=== PATIENT | male | born 1940 | race African-American/Black ===

== ENCOUNTER 2017-03-31 07:27 | Emergency (ER) | payer OTHER ==
[2017-03-31 07:33] VITALS: TEMP 98.1; BMI 39.9
--- NOTE | 2017-03-31 07:59 | PDOC ---
History of Present Illness - General Chief Complaint: Pain, Acute Stated Complaint: RIGHT KNEE PAIN Time Seen by Provider: 03/31/17 07:54 - History of Present Illness Initial Comments: 03/31/17 08:32 76yo man with PMH of Afib (not on AC), HTN, Gout, and recent LGIB who was discharged yesterday and presents this AM due to acute onset of R knee pain. Patient reports pain similar to prior gout attacks (though usually occurs in ankle/toes), and pain is worse with movement. His colchicine was stopped during hospitalization and was not restarted. He has taken acetaminophen for the pain with minimal improvement. He reports his R knee was aspirated 3 to 4 years ago; can not recall the results, but denies it was infected. Denies fever, chills, abdominal pain, CP. No further episodes of melena or bloody stool. Allergies: NKA PCP: Dr. Pacheco 03/31/17 08:37 Past History - Past Medical History Allergies/Adverse Reactions: Allergies Allergy/AdvReac Type Severity Reaction Status Date / Time No Known Allergies Allergy Verified 03/31/17 07:33 Home Medications: Ambulatory Orders Amlodipine Besylate/Benazepril [Lotrel 10-20 mg Capsule] 1 cap PO DAILY Multivit-Min/FA/Lycopen/Lutein [Centrum Silver Men Tablet] 1 each PO DAILY 03/26 Omeprazole 40 mg PO DAILY 03/26/17 Acetaminophen [Tylenol .Regular Strength -] 650 mg PO Q4H PRN tablet 03/30/17 Tamsulosin HCl [Flomax -] 0.4 mg PO DAILY@0830 cap.er.24h 03/30/17 Cardiac Disorders: Yes (A-FIB) COPD: No HTN: Yes - Suicide/Smoking/Psychosocial Hx Smoking History: Never smoked Hx Alcohol Use: No Drug/Substance Use Hx: No Substance Use Type: None Review of Systems - Review of Systems Able to Perform ROS?: Yes All Other Systems: Reviewed and Negative *Physical Exam - Vital Signs Last Vital Signs Temp Pulse Resp BP Pulse Ox 98.1 F 72 18 132/61 100 03/31/17 07:30 03/31/17 07:30 03/31/17 07:30 03/31/17 07:30 03/31/17 07:30 - Physical Exam General Appearance: Yes: Nourished, Appropriately Dressed HEENT: positive: Normal ENT Inspection Neck: positive: Supple Respiratory/Chest: positive: Lungs Clear, Normal Breath Sounds Cardiovascular: positive: Regular Rhythm, Regular Rate, S1, S2 Gastrointestinal/Abdominal: positive: Soft, Protuberent. negative: Tenderness Musculoskeletal: positive: Other (R knee moderately warmer > L knee, R knee ROM intact) Extremity: negative: Pedal Edema Integumentary: positive: Normal Color Neurologic: positive: Fully Oriented, Alert, Normal Mood/Affect ED Treatment Course - LABORATORY CBC & Chemistry Diagram: 03/31/17 08:53 03/31/17 08:53 Medical Decision Making - Medical Decision Making 03/31/17 08:42 76yo man with h/o gout who presents with R knee pain, small suprapatellar effusion without erythema suggestive of a gout attack. Patient's colchicine was d/c during recent hospital stay (03/26-). Call placed to Dr. Adamson for clarification on why it was stopped. Will order CBC and CMP. Will give morphine for pain, and reassess. 03/31/17 10:53 CBC, BMP 03/31/17 08:53 03/31/17 08:53 Hepatic Panel Total Bilirubin 0.5 mg/dL (0.2-1.0) D 03/31/17 08:53 AST 10 U/L (15-37) L D 03/31/17 08:53 ALT 16 U/L (12-78) 03/31/17 08:53 Alkaline Phosphatase 72 U/L (45-117) 03/31/17 08:53 Albumin 3.6 g/dl (3.4-5.0) 03/31/17 08:[address] Adamson. No contraindication to restart colchicine. He does have mild leukocytosis, however physical exam is more consistent with gout attack than a septic joint. Will discharge the patient on colchicine with strict follow -up early next week. *DC/Admit/Observation/Transfer Diagnosis at time of Disposition: Gout attack - Referrals Referrals: Cristi Pacheco MD [Primary Care Provider] - - Patient Instructions Printed Discharge Instructions: DI for Gout Additional Instructions: You likely have a gout attack. Please see your primary care physician early next week. You can restart taking Colchicine 0.6mg daily. Take your first dose tomorrow. You can also take Tylenol for pain. Avoid NSAIDs, such as Advil, Ibuprofen, Motrin, and Naproxen. Please return to the Emergency Department if your knee continues to become swollen, you can't bend your knee, or have new, worsening, or concerning symptoms. - Post Discharge Activity
[2017-03-31] MEDS ORDERED: morphine CARPU-JECT 2 MG/1 ML DISP.SYRIN IVPUSH ONE (08:30)
--- NOTE | 2017-03-31 08:32 | PDOC ---
Attending Attestation - Resident Resident Name: Sweetie Roman - HPI HPI: 03/31/17 08:24 Pt presents to the Ed complaining of the acute onset of R knee pain that is similar to his previous episodes of gout. Patient had a recent admission for GI bleed, and during this admission all of his NSAIDs and his colchicine. Denies fevers or trauma. - Physicial Exam PE: 03/31/17 08:32 Agree with resident's exam. Patient is well appearing. R knee has small suprapatellar effusion, with no erythema. PAtient is able to actively flex to 90 degrees. Minimal pain with passive ROM. - Medical Decision Making 03/31/17 08:35 Pt presents to the ED complaining of R knee pain consistent with gout. No signs of septic arthritis. Unclear why colchicine was discontinued upon discharge. Will treat with morphine, discuss with PMD Dr. Adamson whether patient can have colchicine.
[2017-03-31] MEDS ORDERED: morphine SULFATE 4 MG/ML VIAL ONE (09:06)
[2017-03-31 09:22] LABS: BASOPHIL 0.5 % (0-2.0); EOSINOPHIL 0.5 % (0-4.5); MCH 28.4 pg (25.7-33.7); MCHC 33.5 g/dl (32.0-35.9); MEAN CELL VOLUME 84.7 fl (80-96); MEAN PLT VOLUME 8.9 fl (7.5-11.1); NEUTROPHILS 80.1 % (42.8-82.8); PLATELET COUNT 252 K/MM3 (134-434); RDW 14.9 % (11.9-15.9); WHITE BLOOD COUNT 13.8 K/mm3 (4.0-10.0)
[2017-03-31 09:41] LABS: ALBUMIN 3.6 g/dl (3.4-5.0); ALK PHOS 72 U/L (45-117); ANION GAP 6 (8-16); BILIRUBIN,TOTAL 0.5 mg/dL (0.2-1.0); CALCIUM 8.5 mg/dL (8.5-10.1); CO2 28 mmol/L (21-32); CREATININE 1.3 mg/dL (0.7-1.3); GLUCOSE,RANDOM 119 mg/dL (74-106); SGOT/AST 10 U/L (15-37); SGPT/ALT 16 U/L (12-78); TOT PROT 6.9 g/dl (6.4-8.2)
[2017-03-31] MEDS ORDERED: COLCHICINE 0.6 MG TABLET (FP) PO ONE (11:27)
[2017-03-31] MEDS ORDERED: COLCHICINE 0.6 MG TABLET (FP) ONE (12:06)
[2017-03-31 12:16] VITALS: BP 129/74; PULSE 80
== END 2017-03-31 12:15 | disposition home or self-care (01) ==
LOC: JER 07:27
PROC: 3E033NZ Introduction of Analgesics, Hypnotics, Sedatives into Peripheral Vein, Percutaneous Approach (ICD-10-PCS; principal; 2017-03-31)
DX: M10.9 Gout, unspecified (principal); I10 Essential (primary) hypertension; I48.91 Unspecified atrial fibrillation
CPT/HCPCS: 36415; 80053; 85025; 99283-25

== ENCOUNTER 2020-06-11 20:18 | Emergency (ER) | payer OTHER ==
[2020-06-11 20:30] VITALS: BMI 42.0
[2020-06-11] MEDS ORDERED: MAG HYDROX/AL HYDROX/SIMETH -MYLANTA- ORAL SUSPENSION PO ONE (21:05)
[2020-06-11] MEDS ORDERED: FAMOTIDINE 20 MG TABLET PO ONE (21:05)
[2020-06-11] MEDS ORDERED: ACETAMINOPHEN 325 MG TABLET (FP) PO ONE (21:06)
[2020-06-11] MEDS ORDERED: MAG HYDROX/AL HYDROX/SIMETH 30 ML UNIT-DOSE CUP ONE (21:11)
[2020-06-11] MEDS ORDERED: FAMOTIDINE 20 MG TABLET ONE (21:11)
[2020-06-11] MEDS ORDERED: ACETAMINOPHEN 325 MG TABLET (FP) ONE (21:11)
[2020-06-11 21:50] LABS: BASO % 0.5 % (0-2.0); EOS % 0.8 % (0-4.5); HEMATOCRIT 38.9 % (35.4-49); HEMOGLOBIN 12.8 GM/dL (11.7-16.9); MCH 28.6 pg (25.7-33.7); MCHC 32.8 g/dl (32.0-35.9); MEAN CELL VOLUME 87.3 fl (80-96); MEAN PLT VOLUME 8.8 fl (7.5-11.1); MONO % 8.6 % (3.8-10.2); NEUT % 76.1 % (42.8-82.8); PLATELET COUNT 295 K/MM3 (134-434); RBC 4.46 M/mm3 (4.00-5.60); RDW 15.6 % (11.9-15.9); WHITE BLOOD COUNT 13.5 K/mm3 (4.0-10.0)
[2020-06-11 21:56] LABS: EPI CELLS 10 /uL (0-25.1); HYALINE CASTS 23 /uL (0-3.1); PH,URINE 5.5 (5.0-8.0); URINE APPEARANCE CLEAR; URINE BACTERIA 32 /uL (0-1359); URINE BILIRUBIN NEGATIVE (NEGATIVE); URINE COLOR YELLOW; URINE GLUCOSE (UA) NEGATIVE (NEGATIVE); URINE KETONE NEGATIVE (NEGATIVE); URINE LEUK ESTERASE 2+ (NEGATIVE); URINE NITRITE NEGATIVE (NEGATIVE); URINE PROTEIN NEGATIVE (NEGATIVE); URINE RBC 24 /uL (0-23.9); URINE WBC 681 /uL (0-25.8)
[2020-06-11 22:03] LABS: INR 1.05 (0.83-1.09); PROTHROMBIN TIME (PATIENT) 12.9 SEC (9.7-13.0)
[2020-06-11 22:06] LABS: ACTIVATED PTT 31.2 SECONDS (25.2-36.5)
[2020-06-11 22:13] LABS: POTASSIUM 4.1 mmol/L (3.5-5.1)
[2020-06-11 22:16] LABS: BLOOD UREA NITROGEN 18.2 mg/dL (7-18); CALCIUM 9.2 mg/dL (8.5-10.1)
[2020-06-11 22:19] LABS: CREATININE 1.1 mg/dL (0.55-1.3)
[2020-06-11 22:21] LABS: BILIRUBIN,TOTAL 0.5 mg/dL (0.2-1); TOT PROT 7.6 g/dl (6.4-8.2)
[2020-06-12 00:13] VITALS: BP 133/71; PULSE 66; TEMP 98.1
[2020-06-12] MEDS ORDERED: ACETAMINOPHEN 325 MG TABLET (FP) PO ONE (00:27)
[2020-06-12] MEDS ORDERED: metroNIDAZOLE 250 MG TABLET PO ONE (00:27)
[2020-06-12] MEDS ORDERED: CIPROFLOXACIN 500 MG TABLET (RESTRICTED TO ID) PO ONE (00:27)
[2020-06-12] MEDS ORDERED: ACETAMINOPHEN 325 MG TABLET (FP) ONE (00:37)
[2020-06-12] MEDS ORDERED: metroNIDAZOLE 250 MG TABLET ONE (00:37)
== END 2020-06-12 00:44 | disposition home or self-care (01) ==
LOC: JER 20:18
DX: N39.0 Urinary tract infection, site not specified (principal); K51.90 Ulcerative colitis, unspecified, without complications; K57.92 Diverticulitis of intestine, part unspecified, without perforation or abscess without bleeding
CPT/HCPCS: 36415; 74177-TC; 80053; 81003; 83605; 83690; 85025; 85610; 85730; 87077; 87086; 99285-25; Q9967

== ENCOUNTER 2020-06-21 04:01 | Inpatient (IN) | payer OTHER ==
[2020-06-21] MEDS ORDERED: ACETAMINOPHEN 1000 MG/100 ML VIAL (NON FORMULARY) IVPB ONE (05:34)
[2020-06-21] MEDS ORDERED: ACETAMINOPHEN INJECTION 100 ML IVPB ONE (05:47)
[2020-06-21 08:03] LABS: BASO % 0.2 % (0-2.0); EOS % 0.4 % (0-4.5); HEMATOCRIT 40.3 % (35.4-49); HEMOGLOBIN 13.3 GM/dL (11.7-16.9); LYMPH % 12.4 % (8-40); MEAN PLT VOLUME 8.8 fl (7.5-11.1); MONO % 6.2 % (3.8-10.2); NEUT % 80.8 % (42.8-82.8); PLATELET COUNT 313 K/MM3 (134-434); RBC 4.58 M/mm3 (4.00-5.60); RDW 15.8 % (11.9-15.9); WHITE BLOOD COUNT 18.4 K/mm3 (4.0-10.0)
[2020-06-21 08:05] LABS: CHLORIDE 106 mmol/L (98-107); POTASSIUM 4.6 mmol/L (3.5-5.1); SODIUM 140 mmol/L (136-145)
[2020-06-21 08:09] LABS: ALBUMIN 3.6 g/dl (3.4-5.0); CALCIUM 9.3 mg/dL (8.5-10.1)
[2020-06-21 08:10] LABS: ANION GAP 8 MMOL/L (8-16); BLOOD UREA NITROGEN 12.3 mg/dL (7-18); CO2 26 mmol/L (21-32); GLUCOSE,RANDOM 122 mg/dL (74-106); MAGNESIUM 2.1 mg/dL (1.8-2.4)
[2020-06-21 08:13] LABS: CREATININE 1.2 mg/dL (0.55-1.3); SGOT/AST 10 U/L (15-37); SGPT/ALT 17 U/L (13-61)
[2020-06-21 08:14] LABS: BILIRUBIN,TOTAL 0.8 mg/dL (0.2-1); TOT PROT 6.9 g/dl (6.4-8.2)
[2020-06-21 08:15] LABS: ALK PHOS 86 U/L (45-117)
[2020-06-21] MEDS ORDERED: SODIUM CHLORIDE 1,000 ML IV STA (08:23)
[2020-06-21] MEDS ORDERED: PIPERACILLIN/TAZOB 3.375 GM 3.375 GM in DEXTROSE 5%-WATER - 50 ML IVPB ONE (11:31)
[2020-06-21] MEDS ORDERED: PIPERACILLIN/TAZOB 3.375 GM 3.375 GM/50 ML BAG IVPB ONE (12:21)
[2020-06-21] MEDS: DEXTROSE 5%-NORMAL SALINE 1,000 ML IV SCH (12:22)
[2020-06-21 18:12] VITALS: BMI 42.4
[2020-06-22] MEDS ORDERED: CEFTRIAXONE 1 GM in DEXTROSE 5%-WATER - 50 ML IVPB SCH (08:00)
[2020-06-22] MEDS ORDERED: cefTRIAXone SODIUM 1 GM VIAL ONE (10:36)
[2020-06-22] MEDS ORDERED: DEXTROSE 5%-WATER - 50 ML IVPB ONE (10:37)
[2020-06-22] MEDS: DEXTROSE 5%-NORMAL SALINE 1,000 ML IV SCH ×2 (10:46→17:39)
[2020-06-22] MEDS: PANTOPRAZOLE SODIUM 40 MG VIAL IVPUSH SCH (10:50)
[2020-06-22] MEDS: TAMSULOSIN HCL 0.4 MG CAP PO SCH (10:50)
[2020-06-22] MEDS: metoPROLOL SUCCINATE 25 MG TAB.SR.24H (FP) PO SCH (18:44)
[2020-06-22] MEDS: LISINOPRIL 20 MG TABLET PO SCH (18:44)
[2020-06-23] MEDS ORDERED: cefTRIAXone SODIUM 1 GM VIAL ONE (08:15)
[2020-06-23] MEDS ORDERED: DEXTROSE 5%-WATER - 50 ML IVPB ONE (08:15)
[2020-06-23] MEDS: TAMSULOSIN HCL 0.4 MG CAP PO SCH (08:40)
[2020-06-23] MEDS: CEFTRIAXONE 1 GM in DEXTROSE 5%-WATER - 50 ML IVPB SCH (08:40)
[2020-06-23 08:42] LABS: BASO % 0.5 % (0-2.0); EOS % 1.4 % (0-4.5); HEMATOCRIT 36.3 % (35.4-49); HEMOGLOBIN 11.9 GM/dL (11.7-16.9); LYMPH % 15.2 % (8-40); MCH 28.9 pg (25.7-33.7); MCHC 32.9 g/dl (32.0-35.9); MEAN CELL VOLUME 87.8 fl (80-96); MEAN PLT VOLUME 8.3 fl (7.5-11.1); MONO % 4.7 % (3.8-10.2); NEUT % 78.2 % (42.8-82.8); PLATELET COUNT 282 K/MM3 (134-434); RBC 4.13 M/mm3 (4.00-5.60); RDW 15.6 % (11.9-15.9); WHITE BLOOD COUNT 11.5 K/mm3 (4.0-10.0)
[2020-06-23 09:08] LABS: POTASSIUM 3.9 mmol/L (3.5-5.1)
[2020-06-23 09:21] LABS: CALCIUM 8.5 mg/dL (8.5-10.1)
[2020-06-23 09:22] LABS: ALBUMIN 3.4 g/dl (3.4-5.0); BLOOD UREA NITROGEN 5.7 mg/dL (7-18)
[2020-06-23 09:27] LABS: BILIRUBIN,TOTAL 0.5 mg/dL (0.2-1); TOT PROT 6.4 g/dl (6.4-8.2)
[2020-06-23] MEDS: metoPROLOL SUCCINATE 25 MG TAB.SR.24H (FP) PO SCH (12:33)
[2020-06-23] MEDS: LISINOPRIL 20 MG TABLET PO SCH (12:33)
[2020-06-23] MEDS: amLODIPine BESYLATE 10 MG TABLET (FP) PO SCH (12:33)
[2020-06-23] MEDS: DEXTROSE 5%-NORMAL SALINE 1,000 ML IV SCH (12:35)
[2020-06-23] MEDS: PANTOPRAZOLE SODIUM 40 MG VIAL IVPUSH SCH (12:37)
[2020-06-24] MEDS ORDERED: DEXTROSE 5%-WATER - 50 ML IVPB ONE (08:33)
[2020-06-24] MEDS ORDERED: cefTRIAXone SODIUM 1 GM VIAL ONE (08:33)
[2020-06-24] MEDS: CEFTRIAXONE 1 GM in DEXTROSE 5%-WATER - 50 ML IVPB SCH (08:40)
[2020-06-24] MEDS: TAMSULOSIN HCL 0.4 MG CAP PO SCH (08:40)
[2020-06-24] MEDS: metoPROLOL SUCCINATE 25 MG TAB.SR.24H (FP) PO SCH (09:13)
[2020-06-24] MEDS: LISINOPRIL 20 MG TABLET PO SCH (09:13)
[2020-06-24] MEDS: amLODIPine BESYLATE 10 MG TABLET (FP) PO SCH (09:13)
[2020-06-24] MEDS ORDERED: PANTOPRAZOLE 40 MG TABLET PO SCH (10:00)
[2020-06-24] MEDS ORDERED: metroNIDAZOLE 250 MG TABLET PO SCH (14:00)
[2020-06-24 14:28] VITALS: BP 131/77; PULSE 66; TEMP 98.4
[2020-06-24] MEDS ORDERED: CEFUROXIME AXETIL 500 MG TABLET PO SCH (22:00)
== END 2020-06-24 16:37 | disposition home or self-care (01) | DRG 392 ==
LOC: JER 04:01 → JERBED 11:35 → J6S 17:56 → UNDODISIN 06-24 15:34
PROVIDERS: ADMIT Internal Medicine; ATTEND Internal Medicine
DX: K57.92 Diverticulitis of intestine, part unspecified, without perforation or abscess without bleeding (principal); Z68.41 Body mass index [BMI] 40.0-44.9, adult; I10 Essential (primary) hypertension; I48.91 Unspecified atrial fibrillation; M10.9 Gout, unspecified; R10.9 Unspecified abdominal pain; D50.0 Iron deficiency anemia secondary to blood loss (chronic); E66.9 Obesity, unspecified; Z78.9 Other specified health status
CPT/HCPCS: 36415; 71045-TC-FY; 74177-TC; 80053; 82550; 83605; 83735; 84484; 85025; 93005; 93010; 93971; 99285-25; C9803; J0131; Q9967; U0003

== ENCOUNTER 2023-04-09 08:44 | Inpatient (IN) | payer OTHER ==
[2023-04-09] MEDS ORDERED: SODIUM CHLORIDE 0.9% 500 ML INFUS.BAG IV ONE (10:45)
[2023-04-09] MEDS ORDERED: ONDANSETRON 4 MG/2 ML VIAL IVPUSH ONE (10:45)
[2023-04-09] MEDS ORDERED: FAMOTIDINE 20 MG/50 ML IVPB 20 MG/50 ML MG IVPB ONE ×2 (10:45→10:55)
[2023-04-09] MEDS ORDERED: ACETAMINOPHEN 1000 MG/100 ML BAG IVPB ONE (10:45)
[2023-04-09] MEDS ORDERED: MAG HYDROX/AL HYDROX/SIMETH 30 ML UNIT-DOSE CUP PO ONE (10:46)
[2023-04-09] MEDS ORDERED: ACETAMINOPHEN INJECTION 100 ML IVPB ONE (10:54)
[2023-04-09] MEDS ORDERED: MAG HYDROX/AL HYDROX/SIMETH 30 ML UNIT-DOSE CUP ONE (10:54)
[2023-04-09] MEDS ORDERED: ONDANSETRON 4 MG/2 ML VIAL ONE (10:55)
[2023-04-09 11:11] LABS: EPI CELLS 10 /uL (0-25.1); HYALINE CASTS 1 /uL (0-3.1); PH,URINE 5.5 (5.0-8.0); URINE APPEARANCE CLEAR; URINE BACTERIA 115 /uL (0-1359); URINE BILIRUBIN NEGATIVE (NEGATIVE); URINE COLOR YELLOW; URINE GLUCOSE (UA) NEGATIVE (NEGATIVE); URINE KETONE TRACE (NEGATIVE); URINE LEUK ESTERASE 2+ (NEGATIVE); URINE NITRITE NEGATIVE (NEGATIVE); URINE PROTEIN NEGATIVE (NEGATIVE); URINE RBC 22 /uL (0-23.9); URINE WBC 201 /uL (0-25.8)
[2023-04-09 11:16] LABS: INR 1.13 (0.83-1.09); PROTHROMBIN TIME (PATIENT) 13.1 SEC (9.7-13.0)
[2023-04-09 11:18] LABS: BASO % 0.7 % (0-2.0); CHLORIDE 105 mmol/L (98-107); EOS % 1.3 % (0-4.5); HEMATOCRIT 26.5 % (35.4-49); HEMOGLOBIN 8.6 GM/dL (11.7-16.9); LYMPH % 14.5 % (8-40); MCH 25.2 pg (25.7-33.7); MCHC 32.4 g/dl (32.0-35.9); MEAN CELL VOLUME 77.7 fl (80-96); MEAN PLT VOLUME 8.6 fl (7.5-11.1); MONO % 7.3 % (3.8-10.2); NEUT % 76.2 % (42.8-82.8); PLATELET COUNT 340 10^3/uL (134-434); RBC 3.42 M/mm3 (4.00-5.60); RDW 17.3 % (11.9-15.9); SODIUM 137 mmol/L (136-145)
[2023-04-09 11:19] LABS: ACTIVATED PTT 21.8 SECONDS (25.2-36.5)
[2023-04-09 11:20] LABS: CALCIUM 8.7 mg/dL (8.5-10.1)
[2023-04-09 11:21] LABS: BLOOD UREA NITROGEN 18.5 mg/dL (7-18); CO2 27 mmol/L (21-32); GLUCOSE,RANDOM 109 mg/dL (74-106); LIPASE 40 U/L (73-393)
[2023-04-09 11:23] LABS: SGOT/AST 62 U/L (15-37); SGPT/ALT 14 U/L (13-61)
[2023-04-09 11:24] LABS: CREATININE 1.3 mg/dL (0.55-1.3)
[2023-04-09 11:25] LABS: BILIRUBIN,TOTAL 0.4 mg/dL (0.2-1); TOT PROT 6.6 g/dl (6.4-8.2)
[2023-04-09 11:26] LABS: ALK PHOS 72 U/L (45-117)
[2023-04-09 11:27] LABS: ANION GAP 5 mmol/L (4-13); POTASSIUM 6.6 mmol/L (3.5-5.1)
[2023-04-09 12:52] LABS: POTASSIUM 4.9 mmol/L (3.5-5.1)
[2023-04-09 12:53] LABS: CALCIUM 8.3 mg/dL (8.5-10.1)
[2023-04-09 12:54] LABS: BLOOD UREA NITROGEN 17.2 mg/dL (7-18)
[2023-04-09 12:57] LABS: CREATININE 1.1 mg/dL (0.55-1.3)
[2023-04-09 16:03] LABS: BASO % 1.1 % (0-2.0); EOS % 1.4 % (0-4.5); HEMATOCRIT 24.9 % (35.4-49); HEMOGLOBIN 7.9 GM/dL (11.7-16.9); LYMPH % 19.3 % (8-40); MCHC 31.6 g/dl (32.0-35.9); MEAN CELL VOLUME 79.1 fl (80-96); MEAN PLT VOLUME 8.1 fl (7.5-11.1); MONO % 7.4 % (3.8-10.2); NEUT % 70.8 % (42.8-82.8); PLATELET COUNT 251 10^3/uL (134-434); RBC 3.15 M/mm3 (4.00-5.60); RDW 16.8 % (11.9-15.9); WHITE BLOOD COUNT 9.7 K/mm3 (4.0-10.0)
[2023-04-10 00:12] LABS: BASO % 0.7 % (0-2.0); EOS % 1.2 % (0-4.5); HEMATOCRIT 23.5 % (35.4-49); HEMOGLOBIN 7.3 GM/dL (11.7-16.9); LYMPH % 10.3 % (8-40); MCH 24.4 pg (25.7-33.7); MEAN CELL VOLUME 78.7 fl (80-96); MEAN PLT VOLUME 7.8 fl (7.5-11.1); MONO % 6.1 % (3.8-10.2); NEUT % 81.7 % (42.8-82.8); PLATELET COUNT 318 10^3/uL (134-434); RBC 2.98 M/mm3 (4.00-5.60); RDW 17.1 % (11.9-15.9); WHITE BLOOD COUNT 10.8 K/mm3 (4.0-10.0)
[2023-04-10] MEDS: DEXTROSE 5%-0.45% SALINE 1,000 ML IV SCH (01:39)
[2023-04-10] MEDS ORDERED: ACETAMINOPHEN INJECTION 100 ML IVPB ONE (02:08)
[2023-04-10] MEDS: ACETAMINOPHEN 1000 MG/100 ML BAG IVPB PRN ×2 (02:15→20:54)
[2023-04-10 08:20] LABS: BASO % 0.5 % (0-2.0); EOS % 1.3 % (0-4.5); HEMATOCRIT 24.1 % (35.4-49); HEMOGLOBIN 7.6 GM/dL (11.7-16.9); LYMPH % 12.5 % (8-40); MCH 24.8 pg (25.7-33.7); MCHC 31.7 g/dl (32.0-35.9); MEAN CELL VOLUME 78.3 fl (80-96); MEAN PLT VOLUME 8.3 fl (7.5-11.1); MONO % 6.5 % (3.8-10.2); NEUT % 79.2 % (42.8-82.8); PLATELET COUNT 283 10^3/uL (134-434); RBC 3.08 M/mm3 (4.00-5.60); WHITE BLOOD COUNT 9.6 K/mm3 (4.0-10.0)
[2023-04-10 08:59] LABS: CALCIUM 9.2 mg/dL (8.5-10.1)
[2023-04-10 09:00] LABS: ALBUMIN 2.8 g/dl (3.4-5.0); BLOOD UREA NITROGEN 18.3 mg/dL (7-18)
[2023-04-10 09:03] LABS: CREATININE 1.2 mg/dL (0.55-1.3)
[2023-04-10 09:04] LABS: BILIRUBIN,TOTAL 0.7 mg/dL (0.2-1); TOT PROT 5.5 g/dl (6.4-8.2)
[2023-04-10] MEDS: PANTOPRAZOLE SODIUM 40 MG VIAL IVPUSH SCH (09:10)
[2023-04-10 17:17] VITALS: BMI 36.6
[2023-04-11] MEDS: DEXTROSE 5%-0.45% SALINE 1,000 ML IV SCH (06:07)
[2023-04-11 07:19] LABS: BASO % 0.5 % (0-2.0); HEMOGLOBIN 8.1 GM/dL (11.7-16.9); LYMPH % 15.9 % (8-40); MCH 25.6 pg (25.7-33.7); MCHC 32.5 g/dl (32.0-35.9); MEAN CELL VOLUME 78.9 fl (80-96); MEAN PLT VOLUME 8.4 fl (7.5-11.1); NEUT % 74.6 % (42.8-82.8); PLATELET COUNT 278 10^3/uL (134-434); RBC 3.17 M/mm3 (4.00-5.60); RDW 16.7 % (11.9-15.9); WHITE BLOOD COUNT 9.3 K/mm3 (4.0-10.0)
[2023-04-11 07:36] LABS: POTASSIUM 3.8 mmol/L (3.5-5.1)
[2023-04-11 07:44] LABS: ALBUMIN 2.8 g/dl (3.4-5.0); BLOOD UREA NITROGEN 13.2 mg/dL (7-18); CREATININE 1.1 mg/dL (0.55-1.3)
[2023-04-11 07:45] LABS: TOT PROT 5.7 g/dl (6.4-8.2)
[2023-04-11 07:46] LABS: CALCIUM 8.5 mg/dL (8.5-10.1)
[2023-04-11 07:55] LABS: BILIRUBIN,TOTAL 0.6 mg/dL (0.2-1)
[2023-04-11] MEDS: PANTOPRAZOLE SODIUM 40 MG VIAL IVPUSH SCH (09:32)
[2023-04-11] MEDS ORDERED: ACETAMINOPHEN 1000 MG/100 ML BAG IVPB ONE (21:49)
[2023-04-12] MEDS: DEXTROSE 5%-0.45% SALINE 1,000 ML IV SCH (06:10)
[2023-04-12] MEDS ORDERED: ACETAMINOPHEN WITH CODEINE 300MG/30MG TABLET PO PRN (09:42)
[2023-04-12] MEDS: PANTOPRAZOLE SODIUM 40 MG VIAL IVPUSH SCH (10:12)
[2023-04-12] MEDS: oxyCODONE HCL 5 MG TABLET PO PRN ×2 (14:17→19:01)
[2023-04-13] MEDS: oxyCODONE HCL 5 MG TABLET PO PRN (02:55)
[2023-04-13 07:07] LABS: BASO % 0.3 % (0-2.0); EOS % 2.4 % (0-4.5); HEMATOCRIT 23.8 % (35.4-49); HEMOGLOBIN 7.7 GM/dL (11.7-16.9); LYMPH % 13.4 % (8-40); MCHC 32.4 g/dl (32.0-35.9); MEAN CELL VOLUME 77.1 fl (80-96); MEAN PLT VOLUME 8.1 fl (7.5-11.1); MONO % 5.5 % (3.8-10.2); NEUT % 78.4 % (42.8-82.8); PLATELET COUNT 283 10^3/uL (134-434); RBC 3.08 M/mm3 (4.00-5.60); RDW 16.9 % (11.9-15.9); WHITE BLOOD COUNT 11.2 K/mm3 (4.0-10.0)
[2023-04-13 07:24] LABS: POTASSIUM 3.7 mmol/L (3.5-5.1)
[2023-04-13 07:30] LABS: CALCIUM 8.2 mg/dL (8.5-10.1)
[2023-04-13 07:31] LABS: ALBUMIN 2.6 g/dl (3.4-5.0); BLOOD UREA NITROGEN 9.4 mg/dL (7-18)
[2023-04-13 07:34] LABS: CREATININE 1.1 mg/dL (0.55-1.3)
[2023-04-13 07:35] LABS: BILIRUBIN,TOTAL 0.4 mg/dL (0.2-1); TOT PROT 5.4 g/dl (6.4-8.2)
[2023-04-13] MEDS: PANTOPRAZOLE SODIUM 40 MG VIAL IVPUSH SCH (09:35)
[2023-04-13] MEDS: DEXTROSE 5%-0.45% SALINE 1,000 ML IV SCH (09:37)
[2023-04-14] MEDS: oxyCODONE HCL 5 MG TABLET PO PRN ×2 (01:41→13:39)
[2023-04-14 06:21] LABS: HEMATOCRIT 24.5 % (35.4-49); HEMOGLOBIN 8.1 GM/dL (11.7-16.9); MCH 25.7 pg (25.7-33.7); MEAN PLT VOLUME 8.6 fl (7.5-11.1); PLATELET COUNT 318 10^3/uL (134-434); RBC 3.15 M/mm3 (4.00-5.60); RDW 17.2 % (11.9-15.9); WHITE BLOOD COUNT 12.8 K/mm3 (4.0-10.0)
[2023-04-14 06:40] LABS: POTASSIUM 3.9 mmol/L (3.5-5.1)
[2023-04-14 06:45] LABS: BLOOD UREA NITROGEN 9.1 mg/dL (7-18); CALCIUM 8.6 mg/dL (8.5-10.1)
[2023-04-14 06:46] LABS: ALBUMIN 2.7 g/dl (3.4-5.0)
[2023-04-14 06:48] LABS: CREATININE 1.1 mg/dL (0.55-1.3)
[2023-04-14 06:50] LABS: BILIRUBIN,TOTAL 0.7 mg/dL (0.2-1); TOT PROT 5.7 g/dl (6.4-8.2)
[2023-04-14] MEDS: PANTOPRAZOLE SODIUM 40 MG VIAL IVPUSH SCH (10:35)
[2023-04-15] MEDS: ACETAMINOPHEN WITH CODEINE 300MG/30MG TABLET PO PRN (02:00)
[2023-04-15 08:35] LABS: BASO % 0.4 % (0-2.0); EOS % 1.5 % (0-4.5); HEMATOCRIT 24.8 % (35.4-49); HEMOGLOBIN 8.1 GM/dL (11.7-16.9); LYMPH % 17.5 % (8-40); MCH 25.5 pg (25.7-33.7); MCHC 32.6 g/dl (32.0-35.9); MEAN CELL VOLUME 78.5 fl (80-96); MEAN PLT VOLUME 9.1 fl (7.5-11.1); MONO % 6.3 % (3.8-10.2); NEUT % 74.3 % (42.8-82.8); PLATELET COUNT 342 10^3/uL (134-434); RBC 3.16 M/mm3 (4.00-5.60); RDW 17.1 % (11.9-15.9)
[2023-04-15 08:57] LABS: ALBUMIN 2.8 g/dl (3.4-5.0); BLOOD UREA NITROGEN 11.4 mg/dL (7-18); CALCIUM 8.7 mg/dL (8.5-10.1)
[2023-04-15 09:00] LABS: CREATININE 1.1 mg/dL (0.55-1.3)
[2023-04-15 09:02] LABS: BILIRUBIN,TOTAL 0.6 mg/dL (0.2-1); TOT PROT 5.9 g/dl (6.4-8.2)
[2023-04-15] MEDS: PANTOPRAZOLE SODIUM 40 MG VIAL IVPUSH SCH (10:15)
[2023-04-15] MEDS ORDERED: LORazepam 2 MG/ML SDV VIAL IVPUSH ONE (11:25)
[2023-04-15] MEDS: oxyCODONE HCL 5 MG TABLET PO PRN (14:44)
[2023-04-15] MEDS ORDERED: IRON SUCROSE INJECTION 200 MG in SODIUM CHLORIDE 100 ML IVPB ONE (17:00)
[2023-04-16] MEDS: oxyCODONE HCL 5 MG TABLET PO PRN ×2 (02:12→19:38)
[2023-04-16 09:06] LABS: HEMATOCRIT 23.8 % (35.4-49); HEMOGLOBIN 7.5 GM/dL (11.7-16.9); MCH 24.7 pg (25.7-33.7); MCHC 31.4 g/dl (32.0-35.9); MEAN CELL VOLUME 78.7 fl (80-96); MEAN PLT VOLUME 8.2 fl (7.5-11.1); PLATELET COUNT 287 10^3/uL (134-434); RBC 3.02 M/mm3 (4.00-5.60); RDW 17.1 % (11.9-15.9); WHITE BLOOD COUNT 12.5 K/mm3 (4.0-10.0)
[2023-04-16] MEDS: TAMSULOSIN HCL 0.4 MG CAP PO SCH (09:23)
[2023-04-16] MEDS: PANTOPRAZOLE SODIUM 40 MG VIAL IVPUSH SCH (09:23)
[2023-04-16] MEDS: metoPROLOL SUCCINATE 25 MG TAB.SR.24H (FP) PO SCH (09:30)
[2023-04-16] MEDS: amLODIPine BESYLATE 10 MG TABLET (FP) PO SCH (09:30)
[2023-04-16] MEDS: LISINOPRIL 20 MG TABLET PO SCH (09:30)
[2023-04-16] MEDS ORDERED: PATIENT'S OWN MEDICATION (NON-FORMULARY) (Amlodipine Besylate/Benazepril [Lotrel 10-20 Mg PO SCH (10:00)
[2023-04-16] MEDS ORDERED: IRON SUCROSE INJECTION 200 MG in SODIUM CHLORIDE 90 ML IVPB ONE (12:00)
[2023-04-16] MEDS: POLYETHYLENE GLYCOL (HEALTHYLAX) 3350 17 GM PACKET PO SCH (12:11)
[2023-04-17 09:24] LABS: HEMATOCRIT 24.4 % (35.4-49); MCH 25.9 pg (25.7-33.7); MCHC 32.8 g/dl (32.0-35.9); MEAN PLT VOLUME 8.6 fl (7.5-11.1); PLATELET COUNT 348 10^3/uL (134-434); RBC 3.09 M/mm3 (4.00-5.60); RDW 17.1 % (11.9-15.9)
[2023-04-17] MEDS: TAMSULOSIN HCL 0.4 MG CAP PO SCH (09:28)
[2023-04-17] MEDS: amLODIPine BESYLATE 10 MG TABLET (FP) PO SCH (09:29)
[2023-04-17] MEDS: POLYETHYLENE GLYCOL (HEALTHYLAX) 3350 17 GM PACKET PO SCH (09:29)
[2023-04-17] MEDS: metoPROLOL SUCCINATE 25 MG TAB.SR.24H (FP) PO SCH (09:29)
[2023-04-17] MEDS: LISINOPRIL 20 MG TABLET PO SCH (09:29)
[2023-04-17] MEDS: PANTOPRAZOLE SODIUM 40 MG VIAL IVPUSH SCH (09:29)
[2023-04-17] MEDS: oxyCODONE HCL 5 MG TABLET PO PRN (18:21)
[2023-04-18 08:59] LABS: BASO % 0.4 % (0-2.0); HEMATOCRIT 23.1 % (35.4-49); HEMOGLOBIN 7.4 GM/dL (11.7-16.9); LYMPH % 8.7 % (8-40); MCHC 32.2 g/dl (32.0-35.9); MEAN CELL VOLUME 77.8 fl (80-96); MEAN PLT VOLUME 8.4 fl (7.5-11.1); MONO % 5.8 % (3.8-10.2); NEUT % 84.1 % (42.8-82.8); PLATELET COUNT 357 10^3/uL (134-434); RBC 2.97 M/mm3 (4.00-5.60); RDW 17.4 % (11.9-15.9); WHITE BLOOD COUNT 15.1 K/mm3 (4.0-10.0)
[2023-04-18 09:11] LABS: CALCIUM 8.6 mg/dL (8.5-10.1)
[2023-04-18 09:12] LABS: ALBUMIN 2.7 g/dl (3.4-5.0)
[2023-04-18 09:16] LABS: BILIRUBIN,TOTAL 0.7 mg/dL (0.2-1); TOT PROT 5.8 g/dl (6.4-8.2)
[2023-04-18] MEDS: POLYETHYLENE GLYCOL (HEALTHYLAX) 3350 17 GM PACKET PO SCH ×2 (09:49→10:46)
[2023-04-18] MEDS: TAMSULOSIN HCL 0.4 MG CAP PO SCH (09:49)
[2023-04-18] MEDS: ONDANSETRON 4 MG/2 ML VIAL IVPUSH SCH ×3 (09:49→22:00)
[2023-04-18] MEDS: amLODIPine BESYLATE 10 MG TABLET (FP) PO SCH (09:49)
[2023-04-18] MEDS: LISINOPRIL 20 MG TABLET PO SCH (09:49)
[2023-04-18] MEDS: metoPROLOL SUCCINATE 25 MG TAB.SR.24H (FP) PO SCH (09:50)
[2023-04-18] MEDS: ACETAMINOPHEN WITH CODEINE 300MG/30MG TABLET PO PRN (09:50)
[2023-04-18] MEDS: PANTOPRAZOLE SODIUM 40 MG VIAL IVPUSH SCH (09:52)
[2023-04-18 23:25] LABS: EPI CELLS 5 /uL (0-25.1); HYALINE CASTS 2 /uL (0-3.1); PH,URINE 5.5 (5.0-8.0); URINE APPEARANCE CLOUDY; URINE BACTERIA >9,000 /uL (0-1359); URINE BILIRUBIN NEGATIVE (NEGATIVE); URINE COLOR YELLOW; URINE GLUCOSE (UA) NEGATIVE (NEGATIVE); URINE KETONE NEGATIVE (NEGATIVE); URINE LEUK ESTERASE 2+ (NEGATIVE); URINE NITRITE NEGATIVE (NEGATIVE); URINE PROTEIN NEGATIVE (NEGATIVE); URINE RBC 30 /uL (0-23.9); URINE UROBILINOGEN 4.0 E.U/dl mg/dL (0.2-1.0); URINE WBC 386 /uL (0-25.8)
[2023-04-19] MEDS: ONDANSETRON 4 MG/2 ML VIAL IVPUSH SCH (02:43)
[2023-04-19] MEDS ORDERED: ONDANSETRON 4 MG/2 ML VIAL IVPUSH PRN (06:38)
[2023-04-19] MEDS: metoPROLOL SUCCINATE 25 MG TAB.SR.24H (FP) PO SCH (09:20)
[2023-04-19] MEDS: amLODIPine BESYLATE 10 MG TABLET (FP) PO SCH (09:20)
[2023-04-19] MEDS: TAMSULOSIN HCL 0.4 MG CAP PO SCH (09:21)
[2023-04-19] MEDS: PANTOPRAZOLE SODIUM 40 MG VIAL IVPUSH SCH (09:21)
[2023-04-19] MEDS: LISINOPRIL 20 MG TABLET PO SCH (09:21)
[2023-04-19] MEDS: POLYETHYLENE GLYCOL (HEALTHYLAX) 3350 17 GM PACKET PO SCH (09:28)
[2023-04-19 09:29] LABS: BASO % 0.3 % (0-2.0); HEMATOCRIT 25.5 % (35.4-49); HEMOGLOBIN 8.3 GM/dL (11.7-16.9); LYMPH % 9.2 % (8-40); MCH 25.7 pg (25.7-33.7); MCHC 32.4 g/dl (32.0-35.9); MEAN CELL VOLUME 79.1 fl (80-96); MONO % 6.5 % (3.8-10.2); PLATELET COUNT 310 10^3/uL (134-434); RBC 3.23 M/mm3 (4.00-5.60); WHITE BLOOD COUNT 14.7 K/mm3 (4.0-10.0)
[2023-04-19 10:25] LABS: POTASSIUM 4.1 mmol/L (3.5-5.1)
[2023-04-19 10:29] LABS: CALCIUM 8.2 mg/dL (8.5-10.1)
[2023-04-19 10:30] LABS: BLOOD UREA NITROGEN 13.9 mg/dL (7-18)
[2023-04-19] MEDS ORDERED: LORazepam 2 MG/ML SDV VIAL IVPUSH ONE (14:30)
[2023-04-19] MEDS ORDERED: MIDAZOLAM HCL 2 MG/2 ML SINGLE DOSE VIAL ONE (14:53)
[2023-04-19] MEDS ORDERED: FENTANYL CITRATE/PF 50 MCG/ML VIAL ONE (14:53)
[2023-04-19] MEDS ORDERED: SODIUM CHLORIDE 500 ML IV SCH (15:00)
[2023-04-19] MEDS ORDERED: FENTANYL CITRATE/PF 50 MCG/ML VIAL IVPUSH ONE ×2 (15:10)
[2023-04-19] MEDS ORDERED: MIDAZOLAM HCL 2 MG/2 ML SINGLE DOSE VIAL IVPUSH ONE ×2 (15:10→15:20)
[2023-04-20] MEDS: amLODIPine BESYLATE 10 MG TABLET (FP) PO SCH (09:31)
[2023-04-20] MEDS: metoPROLOL SUCCINATE 25 MG TAB.SR.24H (FP) PO SCH (09:31)
[2023-04-20] MEDS: LISINOPRIL 20 MG TABLET PO SCH (09:32)
[2023-04-20] MEDS: TAMSULOSIN HCL 0.4 MG CAP PO SCH (09:32)
[2023-04-20] MEDS: PANTOPRAZOLE SODIUM 40 MG VIAL IVPUSH SCH (09:32)
[2023-04-20 09:40] LABS: BASO % 0.3 % (0-2.0); EOS % 1.2 % (0-4.5); HEMATOCRIT 25.3 % (35.4-49); LYMPH % 7.2 % (8-40); MCH 25.3 pg (25.7-33.7); MCHC 31.6 g/dl (32.0-35.9); MEAN CELL VOLUME 80.1 fl (80-96); MEAN PLT VOLUME 8.5 fl (7.5-11.1); MONO % 6.8 % (3.8-10.2); NEUT % 84.5 % (42.8-82.8); PLATELET COUNT 338 10^3/uL (134-434); RBC 3.16 M/mm3 (4.00-5.60); RDW 17.6 % (11.9-15.9); WHITE BLOOD COUNT 12.7 K/mm3 (4.0-10.0)
[2023-04-20] MEDS: POLYETHYLENE GLYCOL (HEALTHYLAX) 3350 17 GM PACKET PO SCH (09:49)
[2023-04-20 10:35] LABS: POTASSIUM 4.2 mmol/L (3.5-5.1)
[2023-04-20 10:37] LABS: CALCIUM 8.8 mg/dL (8.5-10.1)
[2023-04-20 10:38] LABS: BLOOD UREA NITROGEN 15.4 mg/dL (7-18)
[2023-04-20 10:41] LABS: CREATININE 1.1 mg/dL (0.55-1.3)
[2023-04-20] MEDS ORDERED: LIDOCAINE HCL 1%, 10 MG/ML (20ML VIAL) ONE (10:46)
[2023-04-20] MEDS ORDERED: MIDAZOLAM HCL 2 MG/2 ML SINGLE DOSE VIAL ONE (11:34)
[2023-04-20] MEDS ORDERED: DEXMEDETOMIDINE HCL 200 MCG/2 ML IVPB ONE (11:54)
[2023-04-20] MEDS ORDERED: PROPOFOL 20 ML ONE ×2 (12:26→13:18)
[2023-04-20] MEDS ORDERED: LIDOCAINE HCL 1%, 10 MG/ML (20ML VIAL) INF ONE ×2 (12:32→12:48)
[2023-04-20] MEDS ORDERED: ACETAMINOPHEN 325 MG TABLET (FP) PO PRN (13:33)
[2023-04-20] MEDS ORDERED: ONDANSETRON 4 MG/2 ML VIAL IVPUSH PRN ×2 (13:33→13:44)
[2023-04-20] MEDS ORDERED: ACETAMINOPHEN WITH CODEINE 300MG/30MG TABLET PO PRN (13:44)
[2023-04-20] MEDS ORDERED: SODIUM CHLORIDE 500 ML IV SCH (13:44)
[2023-04-20] MEDS ORDERED: oxyCODONE HCL 5 MG TABLET PO PRN (13:44)
[2023-04-20] MEDS ORDERED: LACTATED RINGERS SOLUTION 1,000 ML IV SCH (13:45)
[2023-04-21 06:36] VITALS: RESP 18
[2023-04-21] MEDS ORDERED: TAMSULOSIN HCL 0.4 MG CAP PO SCH (08:30)
[2023-04-21] MEDS ORDERED: POLYETHYLENE GLYCOL (HEALTHYLAX) 3350 17 GM PACKET PO SCH (10:00)
[2023-04-21] MEDS ORDERED: amLODIPine BESYLATE 10 MG TABLET (FP) PO SCH (10:00)
[2023-04-21] MEDS ORDERED: PANTOPRAZOLE SODIUM 40 MG VIAL IVPUSH SCH (10:00)
[2023-04-21] MEDS ORDERED: metoPROLOL SUCCINATE 25 MG TAB.SR.24H (FP) PO SCH (10:00)
[2023-04-21] MEDS ORDERED: LISINOPRIL 20 MG TABLET PO SCH (10:00)
[2023-04-21 14:37] VITALS: BP 113/53; PULSE 80; TEMP 98.6
== END 2023-04-21 16:13 | disposition home or self-care (01) | DRG 375 ==
LOC: JER 08:44 → JERBED 18:43 → J4W 04-10 13:35 → J8W 04-14 14:36
PROVIDERS: ADMIT Internal Medicine; ATTEND Internal Medicine
PROC: 30233N1 Transfusion of Nonautologous Red Blood Cells into Peripheral Vein, Percutaneous Approach (ICD-10-PCS; 2023-04-10)
PROC: 0DB68ZX Excision of Stomach, Via Natural or Artificial Opening Endoscopic, Diagnostic (ICD-10-PCS; 2023-04-11)
PROC: 0FB23ZX Excision of Left Lobe Liver, Percutaneous Approach, Diagnostic (ICD-10-PCS; 2023-04-19)
PROC: 0JH63WZ Insertion of Totally Implantable Vascular Access Device into Chest Subcutaneous Tissue and Fascia, Percutaneous Approach (ICD-10-PCS; principal; 2023-04-20 11:30)
DX: C16.9 Malignant neoplasm of stomach, unspecified (principal); C78.7 Secondary malignant neoplasm of liver and intrahepatic bile duct; K92.2 Gastrointestinal hemorrhage, unspecified; D72.829 Elevated white blood cell count, unspecified; I10 Essential (primary) hypertension; I48.0 Paroxysmal atrial fibrillation; D50.0 Iron deficiency anemia secondary to blood loss (chronic); I12.9 Hypertensive chronic kidney disease with stage 1 through stage 4 chronic kidney disease, or unspecified chronic kidney disease; N18.9 Chronic kidney disease, unspecified; E66.9 Obesity, unspecified; Z68.36 Body mass index [BMI] 36.0-36.9, adult
CPT/HCPCS: 36415; 36430; 47000; 70460-TC; 70553-TC; 71045-TC-FY; 71260-TC; 74174-TC; 74177-TC; 76000-TC-FY; 76705-TC; 80048; 80053; 81003; 82105; 82272; 82378; 82728; 83540; 83550; 83605; 83690; 84484; 85025; 85027; 85610; 85730; 86301; 86705; 86850; 86900; 86901; 86922; 87040; 87086; 87340; 87517; 93005; 93010; 94760; 99291; C1788; J1644; J1756; P9058; Q9967